=== PATIENT | male | born 1970 | race African-American/Black ===

== ENCOUNTER 2019-10-17 00:59 | Emergency (ER) | payer SELFPAY ==
[~2019-10-17] VITALS: Ht 200.7 cm; Wt 88.5 kg
[2019-10-17 01:22] VITALS: BP 160/91
[2019-10-17 02:52] LABS: INFLUENZA A PATIENT NEGATIVE (NEGATIVE); INFLUENZA B PATIENT NEGATIVE (NEGATIVE)
[2019-10-17] MEDS ORDERED: AZIT500T4 PO (02:58)
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
== END 2019-10-17 03:01 | disposition home or self-care (01) ==
LOC: ER 00:59
DX: J06.9 Acute upper respiratory infection, unspecified (principal)
CPT/HCPCS: 87804; 99284